=== PATIENT | male | born 1960 | race Caucasian/White ===

== ENCOUNTER → 2016-08-10 | Outpatient (CLI) | payer MEDICARE | LOC: KOH-I 14:53 | DX: J18.9 Pneumonia, unspecified organism (principal); J18.1 Lobar pneumonia, unspecified organism | CPT/HCPCS: 71250 ==

== ENCOUNTER → 2016-10-05 | Outpatient (CLI) | payer MEDICARE | LOC: KOH-I 12:58 | DX: R05 Cough (principal); I10 Essential (primary) hypertension; R91.1 Solitary pulmonary nodule; J44.9 Chronic obstructive pulmonary disease, unspecified; R91.8 Other nonspecific abnormal finding of lung field | CPT/HCPCS: 71250; 76536 ==

== ENCOUNTER → 2016-11-01 | Outpatient (CLI) | payer MEDICARE | LOC: US 08:23 | DX: E04.1 Nontoxic single thyroid nodule (principal) | CPT/HCPCS: 10022; 76536 ==

== ENCOUNTER → 2020-08-01 | Outpatient (CLI) | payer MEDICARE | LOC: KOH-I 12:51 | DX: E04.1 Nontoxic single thyroid nodule (principal) | CPT/HCPCS: 76536 ==

== ENCOUNTER → 2020-12-27 | Outpatient (CLI) | payer MEDICARE | LOC: CT 12-26 10:30 → KOH-I 10:18 → CT 10:30 | DX: F17.210 Nicotine dependence, cigarettes, uncomplicated (principal); R91.8 Other nonspecific abnormal finding of lung field | CPT/HCPCS: 71271 ==

== ENCOUNTER → 2021-03-10 | Outpatient (CLI) | payer MEDICARE | LOC: KOH-I 11:23 | DX: E04.1 Nontoxic single thyroid nodule (principal) | CPT/HCPCS: 76536 ==

== ENCOUNTER → 2021-06-30 | Outpatient (CLI) | payer MEDICARE | LOC: KOH-I 11:27 | DX: R91.1 Solitary pulmonary nodule (principal); R91.8 Other nonspecific abnormal finding of lung field | CPT/HCPCS: 71250 ==

== ENCOUNTER → 2021-12-29 | Outpatient (CLI) | payer MEDICARE | LOC: KOH-I 12-26 08:00 | DX: R91.1 Solitary pulmonary nodule (principal) | CPT/HCPCS: 71250 ==